=== PATIENT | male | born 1995 | race Two or more races ===

== ENCOUNTER 2017-12-15 22:18 | Emergency (ER) | payer SELFPAY ==
[~2017-12-15] VITALS: Ht 177.8 cm; Wt 113.4 kg
[2017-12-15 22:36] VITALS: BP 133/73
[2017-12-15] MEDS ORDERED: TETANUS-DIPTH-ACEL PERTUSSIS 0.5ML SYRG IM ONE (23:45)
[2017-12-15] MEDS ORDERED: LIDOCAINE 1% HCL (LOCAL ANESTH.) INJ 20ML MDV IJ ONE (23:45)
[2017-12-15] MEDS ORDERED: HYDROcodone-ACET 10/325MG TAB PO ONE (23:45)
== END 2017-12-16 01:39 | disposition home or self-care (01) ==
LOC: ER 22:18
DX: S61.210A Laceration without foreign body of right index finger without damage to nail, initial encounter (principal); S61.212A Laceration without foreign body of right middle finger without damage to nail, initial encounter; S61.214A Laceration without foreign body of right ring finger without damage to nail, initial encounter; W26.9XXA Contact with unspecified sharp object(s), initial encounter; Y93.89 Activity, other specified; Y99.8 Other external cause status; Y92.89 Other specified places as the place of occurrence of the external cause
CPT/HCPCS: 12004; 90471; 90715; 99283; J2001

== ENCOUNTER 2018-06-27 08:59 | Emergency (ER) | payer MEDICAID ==
[~2018-06-27] VITALS: Ht 177.8 cm; Wt 90.7 kg
[2018-06-27 09:28] VITALS: BP 127/78
[2018-06-27] MEDS: LIDOCAINE 1% (LOCAL ANESTH.) PF 5ml SDV ID ONE (10:00)
[2018-06-27] MEDS: LET TOPICAL SOLN 5 ML TOP ONE (10:00)
[2018-06-27] MEDS: BACITRACIN TOP OINT 1 UD PKG TOP ONE (10:00)
== END 2018-06-27 11:16 | disposition home or self-care (01) ==
LOC: ER 08:59
DX: S61.511A Laceration without foreign body of right wrist, initial encounter (principal); W25.XXXA Contact with sharp glass, initial encounter; Y93.89 Activity, other specified; Y99.8 Other external cause status; Y92.89 Other specified places as the place of occurrence of the external cause
CPT/HCPCS: 12001; 99283; J3490